=== PATIENT | female | born 2000 | race Caucasian/White ===

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

== ENCOUNTER 2022-09-14 14:06 | Outpatient (CLI) | payer BC, SELFPAY ==
--- NOTE | 2022-09-14 14:15 | US_ITS ---
WS: [id number] Pelvic ultrasound, 09/14/2022 Clinical Data: N91.2 - Amenorrhea, unspecified Comparison: None. Findings: The uterus measures 7.1 cm x 3.6 cm x 3.1 cm. The endometrium is 0.5 cm. No intrauterine or abnormal intrauterine mass is seen. The cervical length is cm. The left ovary measures 2.8 cm x 2.4 cm x 2.0 cm with a lacunar cysts. The right ovary measures 3.2 cm x 2.3 cm x 2.3 cm with follicular cysts. A small amount of fluid in the cul-de-sac. US/US transvaginal [id number] Impression: Negative pelvic ultrasound.
== END 2022-09-14 14:07 | disposition home or self-care (01) ==
PROVIDERS: PCP Nurse Practitioner; Visit Provider Nurse Practitioner
DX: N91.2 Amenorrhea, unspecified (principal)
CPT/HCPCS: 76830; 81025; 84443

== ENCOUNTER → 2022-09-15 09:47 | Outpatient (BNVA) | payer BC, SELFPAY | PROVIDERS: PCP Nurse Practitioner; Referring Provider Nurse Practitioner; Visit Provider Obstetrics & Gynecology | DX: N92.6 Irregular menstruation, unspecified (principal) | CPT/HCPCS: 81025 ==

== ENCOUNTER → 2022-09-16 13:10 | Outpatient (BNVA) | payer BC, SELFPAY | PROVIDERS: PCP Nurse Practitioner; Visit Provider Obstetrics & Gynecology | DX: N92.6 Irregular menstruation, unspecified (principal) | CPT/HCPCS: 84146; 85025 ==